=== PATIENT | male | born 1980 | race African-American/Black ===

== ENCOUNTER 2018-10-22 18:43 | Emergency (ER) | payer OTHER ==
[~2018-10-22] VITALS: Ht 190.5 cm; Wt 113.4 kg
[2018-10-22] MEDS ORDERED: PENICILLIN VK500 MG PO (19:30)
[2018-10-22 19:31] LABS: ABSOLUTE NEUTROPHILS 3.1 thou/uL (1.4-8.2); BASOPHILS 0.9 % (0.0-2.0); EOSINOPHILS 3.1 % (0.0-3.0); HEMATOCRIT 46.3 % (42.0-52.0); HEMOGLOBIN 16.1 gm/dL (14.0-18.0); LYMPHOCYTES 32.8 % (24.0-44.0); MCH 33.6 pg (26.0-34.0); MCHC 34.7 g/dL (28.0-37.0); MCV 96.8 fL (80.0-100.0); MONOCYTES 6.9 % (1.0-8.0); PLATELET COUNT 252 thou/uL (150-400); POLYS 56.3 % (36.0-66.0); RBC 4.78 mil/uL (4.50-6.00); RDW 14.2 % (10.5-14.5); WBC 5.5 thou/uL (4.0-11.0)
[2018-10-22 19:37] LABS: ANION GAP 10 mmol/L (7-16); BUN 11 mg/dL (7-18); CALCIUM 8.8 mg/dL (8.5-10.1); CHLORIDE 104 mmol/L (98-107); CO2 25 mmol/L (21-32); CREATININE 1.4 mg/dL (0.7-1.3); GLUCOSE 146 mg/dL (74-106); POTASSIUM 3.8 mmol/L (3.5-5.1); SODIUM 139 mmol/L (136-145)
[2018-10-22 19:45] LABS: DIRECT BILIRUBIN 0.1 mg/dL (<0.1-0.3); SGOT 41 U/L (15-37); SGPT 84 U/L (30-65); TOTAL BILIRUBIN 0.4 mg/dL (<0.1-1.0); TOTAL PROTEIN 7.7 g/dL (6.4-8.2); TROPONIN-I <0.06 ng/mL (<0.06)
[2018-10-22 20:11] LABS: ANISOCYTOSIS 1+
[2018-10-22 21:00] LABS: URINE BILIRUBIN NEGATIVE (Negative); URINE BLOOD NEGATIVE (Negative); URINE CLARITY CLEAR; URINE COLOR YELLOW; URINE GLUCOSE-RANDOM* NEGATIVE (Negative); URINE KETONES NEGATIVE (Negative); URINE LEUKOCYTES-REFLEX NEGATIVE (Negative); URINE NITRITE-REFLEX NEGATIVE (Negative); URINE PROTEIN (DIPSTICK) NEGATIVE (Negative); URINE SPECIFIC GRAVITY >= 1.030 (1.005-1.035); URINE UROBILINOGEN 0.2 E.U./dl (0.2-1.0)
[2018-10-22 22:11] VITALS: BP 112/62
--- NOTE | 2018-10-23 08:35 | EKG ---
[address] [address] ELECTROCARDIOGRAM REPORT Name: SHABNAM MATHEWS Room #: [id number] ������������������ Admission: 10/22/18 ������������������ Attend Phys: Discharge: 10/22/18 ������������������ Date of : 84 Report #: [id number] ����������������������������������������������������������������� [id number] THIS REPORT FOR: //name// [facility] ED Test Date: 2018-10-22 Test Time: 19:20:09 Pat Name: SHABNAM MATHEWS Department: Room: Gender: M [employer]: [place] : 1980 Requested By: Juan Luis Christianson Order Number: [id number] MD: Pineda Flood Measurements Intervals [place] Rate: 93 P: 22 [place]: 167 QRS: 23 QRSD: 92 T: 16 QT: 347 QTc: 432 Interpretive Statements Sinus rhythm No significant abnormality No previous ECG available for comparison Electronically Signed On 10-23-2018 8:35:08 [employer]INTENA[employer] TECH by Pineda Flood [email or web address] ��������������������������������������������� <ELECTRONICALLY SIGNED> ���������������������������������������� By: Pineda Flood MD, [facility] ��������������������������������������������� 10/23/18 0835 1920 19 Pineda Flood MD, FACC /EPI
== END 2018-10-22 22:13 | disposition home or self-care (01) ==
LOC: ER 18:43
PROVIDERS: Emergency Medicine
DX: R00.0 Tachycardia, unspecified (principal); K08.89 Other specified disorders of teeth and supporting structures